=== PATIENT | male | born 1960 | race Caucasian/White ===

== ENCOUNTER → 2019-01-20 | Outpatient (CLI) | payer SELFPAY ==
--- NOTE | 2019-01-20 10:08 | NM ---
EXAM DESCRIPTION: Hepatobiliar w/CCK CLINICAL HISTORY: Diarrhea, right upper quadrant abdominal pain COMPARISON: None available TECHNIQUE: Routine hepatobiliary scan was performed following intravenous administration of 8.2 mCi technetium 99m Choletec. Slow intravenous infusion of 2 mcg of sincalide was used to stimulate gallbladder contraction. FINDINGS: Hepatobiliary scan shows prompt accumulation of the radiopharmaceutical within the liver and excretion into the biliary ductal system, gallbladder, and small bowel. Gallbladder ejection fraction is assessed following slow intravenous infusion of sincalide. Patient reports duplication of abdominal symptoms including right upper quadrant abdominal pain and nausea with sincalide infusion. Gallbladder ejection fraction is calculated up to 95%. IMPRESSION: 1. Visualization of the gallbladder essentially excludes acute cholecystitis. 2. Gallbladder ejection fraction is calculated up to 95% (normal range is greater than 35%). 3. Patient reports duplication of abdominal symptoms during gallbladder stimulation phase of the exam. Electronically signed by: Shaggy Jackman MD 01/20/2019 10:07 AM CDT
== END ==
LOC: NM 07:56
PROVIDERS: ATTEND General Practice
DX: R19.7 Diarrhea, unspecified (principal)
CPT/HCPCS: 78227; A9537